=== PATIENT | male | born 1960 | race Caucasian/White ===

== ENCOUNTER 2017-12-10 16:08 | Emergency (ER) | payer MEDICARE ==
[~2017-12-10] VITALS: Ht 165.1 cm; Wt 88.0 kg
[~2017-12-10 16:08] MED LIST: ASPI-1159 PO; B50 PO; CARV25TA47 PO; CLOP75TA16 PO; DOCU250C14 PO; HYDR-4135 PO; ISOS30TA6 PO; METF500T6 PO; METO25TA6 PO; SIMV20TA6 PO; TAGALUD PO
[2017-12-10 17:26] VITALS: BP 121/70
[2017-12-10 19:57] LABS: BASOPHILS % 0.9 % (0.0-2.0); EOSINOPHILS % 1.5 % (0.0-5.0); HEMATOCRIT. 36.7 % (42.0-52.0); HEMOGLOBIN. 11.6 g/dL (14.0-18.0); LYMPHOCYTES % 29.1 % (20.0-50.0); MEAN CORPUSCULAR HEMOGLOBIN 22.5 pg (28.0-32.0); MEAN CORPUSCULAR VOLUME 71.1 fL (80.0-94.0); MEAN PLATELET VOLUME 10.7 fl (7.4-10.4); MONOCYTES % 8.4 % (2.0-8.0); NEUTROPHILS % 60.1 % (40.0-76.0); PLATELET 209 x1000/uL (130-400); RED BLOOD CELL COUNT 5.16 mill/uL (4.7-6.1)
[2017-12-10 20:01] LABS: CHLORIDE 105 mEq/L (98-107)
[2017-12-10] MEDS ORDERED: LIDOCAINE HCL 1% 20ML VIAL (Pyxis) INJ INFIL ONE (22:00)
[2017-12-10] MEDS ORDERED: LIDOCAINE HCL/PF 1% 10 MG/ML 5ML VIAL IJ ONE (22:15)
[2017-12-10] MEDS ORDERED: IOHEXOL-300 100 ML BOTTLE ONE (23:13)
[2017-12-11] MEDS ORDERED: CEFTRIAXONE SODIUM 500 MG/VIAL IM ONE (00:15)
[2017-12-11] MEDS ORDERED: LIDOCAINE HCL 1% 20ML VIAL (Pyxis) INJ INFIL ONE (00:15)
== END 2017-12-11 00:33 | disposition home or self-care (01) ==
LOC: ER 16:44
DX: L02.211 Cutaneous abscess of abdominal wall (principal)
CPT/HCPCS: 10060; 36415; 74177; 80053; 82962; 85025; 96372; 99285; J0696; J3490; Q9967; Z7610

== ENCOUNTER 2021-08-14 09:24 | Inpatient (IN) | payer MEDICAID ==
[~2021-08-14] VITALS: Ht 170.2 cm; Wt 86.3 kg
[~2021-08-14 09:24] MED LIST changes: -ASPI-1159 PO; +ASPI-1497 PO; +CLOP-31 PO; -CLOP75TA16 PO; -ISOS30TA6 PO; +ISOS30TA91 PO; +METF-414 PO; -METF500T6 PO; +SIMV-43 PO; -SIMV20TA6 PO
[2021-08-14 09:52] LABS: BASOPHILS % 0.9 % (0.0-2.0); EOSINOPHILS % 0.6 % (0.0-5.0); HEMATOCRIT. 48.6 % (42.0-52.0); HEMOGLOBIN. 16.1 g/dL (14.0-18.0); LYMPHOCYTES % 17.6 % (20.0-50.0); MEAN CORPUSCULAR HEMOGLOBIN 27.8 pg (28.0-32.0); MEAN CORPUSCULAR VOLUME 83.8 fL (80.0-94.0); MEAN PLATELET VOLUME 9.1 fl (7.4-10.4); MONOCYTES % 4.3 % (2.0-8.0); NEUTROPHILS % 76.6 % (40.0-76.0); PLATELET 202 x1000/uL (130-400); RED BLOOD CELL COUNT 5.79 mill/uL (4.7-6.1); RED CELL DISTRIBUTION WIDTH 15.4 % (11.6-14.6)
[2021-08-14 10:01] LABS: CHLORIDE 107 mEq/L (98-107)
[2021-08-14 10:16] LABS: PROTHROMBIN TIME 11.1 sec (9.6-11.0)
[2021-08-14] MEDS ORDERED: TOPUD PO (12:09)
[2021-08-14] MEDS ORDERED: ENALAPRIL 2.5MG/2ML VIAL 2ML IV ONE (13:45)
[2021-08-14] MEDS ORDERED: FUROSEMIDE 40MG/4ML VIAL IVP ONE (13:45)
[2021-08-14 14:53] LABS: CLARITY URINE CLEAR (CLEAR); COLOR URINE YELLOW (YELLOW); KETONES URINE 1+ (NEGATIVE); LEUKOCYTE ESTERASE URINE NEGATIVE (NEGATIVE); NITRITE URINE NEGATIVE (NEGATIVE); OCCULT BLOOD URINE NEGATIVE (NEGATIVE); PROTEIN URINE 4+ (NEGATIVE); SPECIFIC GRAVITY URINE 1.028 (1.005-1.030)
[2021-08-14] MEDS ORDERED: FUROSEMIDE 20MG/2ML VIAL IVP NR (15:45)
[2021-08-14] MEDS ORDERED: HYDRALAZINE 20MG/ML VIAL IV PRN (16:00)
[2021-08-14] MEDS ORDERED: POTASSIUM CHLORIDE 20MEQ TABLET SR PO NR (16:00)
[2021-08-14] MEDS ORDERED: FUROSEMIDE 40MG/4ML VIAL IVP SCH (18:00)
[2021-08-14 18:58] VITALS: BP 150/104
[2021-08-14] MEDS ORDERED: DEXTROSE 50% WATER 50ML SYRINGE IV PRN (21:30)
[2021-08-14] MEDS ORDERED: CLONIDINE 0.1MG TABLET PO PRN (21:30)
[2021-08-14 22:00] VITALS: BP 152/103
[2021-08-14] MEDS: LISINOPRIL 5MG TABLET PO SCH (22:09)
[2021-08-14] MEDS: ATORVASTATIN CALCIUM 20MG TABLET PO SCH (22:09)
[2021-08-14] MEDS ORDERED: GUAIFENESIN-DM 200MG-20MG/10ML UDC PO PRN (23:00)
[2021-08-15] MEDS ORDERED: METF-874 MT (05:07)
[2021-08-15] MEDS ORDERED: SIMV-43 MT (05:07)
[2021-08-15] MEDS ORDERED: DOXA2TAB2 MT (05:07)
[2021-08-15] MEDS ORDERED: LISI10TA26 MT (05:07)
[2021-08-15] MEDS ORDERED: FURO20TA4 MT (05:07)
[2021-08-15] MEDS ORDERED: ASPI-1497 MT (05:07)
[2021-08-15] MEDS ORDERED: ATROV INH (05:07)
[2021-08-15] MEDS ORDERED: ISOS30TA91 MT (05:07)
[2021-08-15] MEDS ORDERED: AMLO10TA80 MT (05:07)
[2021-08-15 06:53] LABS: CHLORIDE 108 mEq/L (98-107)
[2021-08-15] MEDS: BLOOD SUGAR DIAGNOSTIC STRIP TEST SCH ×4 (06:55→20:39)
[2021-08-15 06:56] LABS: BASOPHILS % 0.7 % (0.0-2.0); EOSINOPHILS % 1.6 % (0.0-5.0); HEMATOCRIT. 50.4 % (42.0-52.0); HEMOGLOBIN. 16.7 g/dL (14.0-18.0); MEAN CORPUSCULAR HEMOGLOBIN 27.6 pg (28.0-32.0); MEAN CORPUSCULAR VOLUME 83.3 fL (80.0-94.0); MEAN PLATELET VOLUME 9.3 fl (7.4-10.4); MONOCYTES % 8.9 % (2.0-8.0); NEUTROPHILS % 55.8 % (40.0-76.0); PLATELET 205 x1000/uL (130-400); RED BLOOD CELL COUNT 6.05 mill/uL (4.7-6.1); RED CELL DISTRIBUTION WIDTH 15.7 % (11.6-14.6)
[2021-08-15] MEDS: INSULIN LISPRO 100 UNITS/ML SUBCUT SCH ×4 (06:59→20:39)
[2021-08-15 08:00] VITALS: BP 154/101
[2021-08-15] MEDS: CLOPIDOGREL 75MG TABLET PO SCH (10:00)
[2021-08-15] MEDS: FUROSEMIDE 40MG/4ML VIAL IVP SCH ×2 (10:00→20:40)
[2021-08-15] MEDS: LISINOPRIL 5MG TABLET PO SCH (10:00)
[2021-08-15] MEDS: ASPIRIN 81MG EC TABLET PO SCH (10:00)
[2021-08-15] MEDS: ENOXAPARIN 40MG/0.4ML SYR SUBCUT SCH (10:00)
[2021-08-15] MEDS: CARVEDILOL 12.5MG TABLET PO SCH ×2 (10:26→17:14)
[2021-08-15 13:18] VITALS: BP 143/102
[2021-08-15 16:00] VITALS: BP 139/92
[2021-08-15 20:00] VITALS: BP 151/87
[2021-08-15] MEDS: ATORVASTATIN CALCIUM 20MG TABLET PO SCH (20:40)
[2021-08-16] VITALS: BP 146/92
[2021-08-16 04:00] VITALS: BP 146/95
[2021-08-16] MEDS: BLOOD SUGAR DIAGNOSTIC STRIP TEST SCH ×4 (06:14→21:00)
[2021-08-16] MEDS: INSULIN LISPRO 100 UNITS/ML SUBCUT SCH ×4 (06:26→21:48)
[2021-08-16 08:00] VITALS: BP 144/83
[2021-08-16] MEDS: FUROSEMIDE 40MG/4ML VIAL IVP SCH (09:26)
[2021-08-16] MEDS: LISINOPRIL 5MG TABLET PO SCH (09:26)
[2021-08-16] MEDS: CARVEDILOL 12.5MG TABLET PO SCH ×2 (09:26→17:23)
[2021-08-16] MEDS: ASPIRIN 81MG EC TABLET PO SCH (09:26)
[2021-08-16] MEDS: CLOPIDOGREL 75MG TABLET PO SCH (09:26)
[2021-08-16] MEDS: ENOXAPARIN 40MG/0.4ML SYR SUBCUT SCH (09:27)
[2021-08-16 11:32] LABS: CHLORIDE 103 mEq/L (98-107)
[2021-08-16 12:00] VITALS: BP 140/83
[2021-08-16] MEDS: POTASSIUM CHLORIDE 20MEQ TABLET SR PO SCH (18:20)
[2021-08-16 20:00] VITALS: BP 120/78
[2021-08-16] MEDS: ATORVASTATIN CALCIUM 20MG TABLET PO SCH (20:45)
[2021-08-16] MEDS: FUROSEMIDE 40MG/4ML VIAL IV SCH (20:45)
[2021-08-16] MEDS ORDERED: FUROSEMIDE 100MG/10ML VIAL IV SCH (21:00)
[2021-08-17] VITALS (9 sets, daily range): BP systolic 107–140; BP diastolic 62–89
[2021-08-17] MEDS: FUROSEMIDE 40MG/4ML VIAL IV SCH (05:13)
[2021-08-17] MEDS: BLOOD SUGAR DIAGNOSTIC STRIP TEST SCH ×4 (06:45→20:47)
[2021-08-17] MEDS: GLIPIZIDE 5MG TABLET PO SCH (07:10)
[2021-08-17] MEDS: INSULIN LISPRO 100 UNITS/ML SUBCUT SCH ×4 (07:14→20:47)
[2021-08-17] MEDS: POTASSIUM CHLORIDE 20MEQ TABLET SR PO SCH (08:10)
[2021-08-17] MEDS: CLOPIDOGREL 75MG TABLET PO SCH (08:10)
[2021-08-17] MEDS: CARVEDILOL 12.5MG TABLET PO SCH ×2 (08:10→17:28)
[2021-08-17] MEDS: ASPIRIN 81MG EC TABLET PO SCH (08:10)
[2021-08-17] MEDS: ENOXAPARIN 40MG/0.4ML SYR SUBCUT SCH (08:11)
[2021-08-17] MEDS: LISINOPRIL 5MG TABLET PO SCH (08:11)
[2021-08-17] MEDS ORDERED: LIDOCAINE HCL 1% 20ML VIAL (Pyxis) INJ ONE (10:15)
[2021-08-17] MEDS ORDERED: VERAPAMIL HCL 2.5 MG/1 ML 2ML VIAL IV ONE (10:16)
[2021-08-17] MEDS ORDERED: MIDAZOLAM HCL 2 MG/2 ML VIAL ONE (10:16)
[2021-08-17] MEDS ORDERED: IODIXANOL 320MG/ML 100 ML BOTTLE IV ONE ×2 (10:16→11:43)
[2021-08-17] MEDS ORDERED: DIPHENHYDRAMINE 50MG/ML VIAL ONE ×2 (10:17→11:22)
[2021-08-17] MEDS ORDERED: FENTANYL CITRATE/PF 50MCG/ML 2ML VIAL ONE (10:17)
[2021-08-17] MEDS ORDERED: IOHEXOL-300 100 ML BOTTLE ONE (11:28)
[2021-08-17] MEDS ORDERED: CLOPIDOGREL 75MG TABLET ONE (12:11)
[2021-08-17] MEDS ORDERED: ASPIRIN 325MG TABLET ONE (12:11)
[2021-08-17] MEDS ORDERED: ATROPINE SULFATE 1MG/10ML SYR IV PRN (12:45)
[2021-08-17] MEDS ORDERED: ACETAMINOPHEN 325MG TABLET PO PRN (12:45)
[2021-08-17] MEDS ORDERED: NICARDIPINE 100MCG/ML 10ML VIAL (CATH LAB) IV ONE (14:56)
[2021-08-17] MEDS ORDERED: NITROGLYCERIN 50MCG/ML 10ML VIAL (CATH LAB) IV ONE (14:56)
[2021-08-17] MEDS ORDERED: HEPARIN SODIUM 1,000 UNIT/1ML VIAL IV ONE (14:56)
[2021-08-17] MEDS: ATORVASTATIN CALCIUM 20MG TABLET PO SCH (20:46)
[2021-08-18] VITALS (8 sets, daily range): BP systolic 117–144; BP diastolic 75–98
[2021-08-18] MEDS: GLIPIZIDE 5MG TABLET PO SCH (06:48)
[2021-08-18] MEDS: BLOOD SUGAR DIAGNOSTIC STRIP TEST SCH ×2 (06:48→12:30)
[2021-08-18 07:22] LABS: BASOPHILS % 0.6 % (0.0-2.0); HEMATOCRIT. 49.6 % (42.0-52.0); HEMOGLOBIN. 16.9 g/dL (14.0-18.0); LYMPHOCYTES % 34.2 % (20.0-50.0); MEAN CORPUSCULAR HEMOGLOBIN 28.2 pg (28.0-32.0); MEAN CORPUSCULAR VOLUME 82.8 fL (80.0-94.0); MEAN PLATELET VOLUME 9.4 fl (7.4-10.4); MONOCYTES % 10.3 % (2.0-8.0); NEUTROPHILS % 51.9 % (40.0-76.0); PLATELET 177 x1000/uL (130-400); RED BLOOD CELL COUNT 5.99 mill/uL (4.7-6.1); RED CELL DISTRIBUTION WIDTH 15.3 % (11.6-14.6)
[2021-08-18 08:03] LABS: CHLORIDE 106 mEq/L (98-107)
[2021-08-18] MEDS: CLOPIDOGREL 75MG TABLET PO SCH (08:53)
[2021-08-18] MEDS: CARVEDILOL 12.5MG TABLET PO SCH (08:53)
[2021-08-18] MEDS: POTASSIUM CHLORIDE 20MEQ TABLET SR PO SCH (08:53)
[2021-08-18] MEDS: ENOXAPARIN 40MG/0.4ML SYR SUBCUT SCH (08:54)
[2021-08-18] MEDS: INSULIN LISPRO 100 UNITS/ML SUBCUT SCH ×2 (08:55→12:51)
[2021-08-18] MEDS ORDERED: ASPIRIN 81MG TABLET PO SCH (09:00)
[2021-08-18] MEDS: LISINOPRIL 5MG TABLET PO SCH (09:06)
[2021-08-18] MEDS ORDERED: CLOP75TA15 PO (13:19)
== END 2021-08-18 14:51 | disposition home or self-care (01) | DRG 175 ==
LOC: ER 09:24 → 8WST 14:01 → ENRESERV 16:00 → 5EST 08-17 13:07
PROVIDERS: ADMIT Internal Medicine; ATTEND Internal Medicine
PROC: 027034Z Dilation of Coronary Artery, One Artery with Drug-eluting Intraluminal Device, Percutaneous Approach (ICD-10-PCS; principal; 2021-08-17)
PROC: B54MZZA Ultrasonography of Right Upper Extremity Veins, Guidance (ICD-10-PCS; 2021-08-17)
PROC: 4A023N7 Measurement of Cardiac Sampling and Pressure, Left Heart, Percutaneous Approach (ICD-10-PCS; 2021-08-17)
PROC: B211YZZ Fluoroscopy of Multiple Coronary Arteries using Other Contrast (ICD-10-PCS; 2021-08-17)
PROC: B240ZZ3 Ultrasonography of Single Coronary Artery, Intravascular (ICD-10-PCS; 2021-08-17)
DX: T82.855A Stenosis of coronary artery stent, initial encounter (principal); I50.23 Acute on chronic systolic (congestive) heart failure; E44.1 Mild protein-calorie malnutrition; I11.0 Hypertensive heart disease with heart failure; I42.9 Cardiomyopathy, unspecified; E11.9 Type 2 diabetes mellitus without complications; E78.5 Hyperlipidemia, unspecified; F17.210 Nicotine dependence, cigarettes, uncomplicated; J44.9 Chronic obstructive pulmonary disease, unspecified; K43.9 Ventral hernia without obstruction or gangrene; N28.1 Cyst of kidney, acquired; I16.0 Hypertensive urgency; Z20.822 Contact with and (suspected) exposure to COVID-19; I25.110 Atherosclerotic heart disease of native coronary artery with unstable angina pectoris; R06.03 Acute respiratory distress; Y83.1 Surgical operation with implant of artificial internal device as the cause of abnormal reaction of the patient, or of later complication, without mention of misadventure at the time of the procedure; Z68.29 Body mass index [BMI] 29.0-29.9, adult; Z86.16 Personal history of COVID-19; Z95.1 Presence of aortocoronary bypass graft; Z90.49 Acquired absence of other specified parts of digestive tract; Z88.6 Allergy status to analgesic agent; Z88.1 Allergy status to other antibiotic agents; Z88.8 Allergy status to other drugs, medicaments and biological substances; Z79.899 Other long term (current) drug therapy; Z79.1 Long term (current) use of non-steroidal anti-inflammatories (NSAID); Z79.82 Long term (current) use of aspirin; Z79.4 Long term (current) use of insulin; Y92.89 Other specified places as the place of occurrence of the external cause
CPT/HCPCS: 36415; 71045; 74176; 78582; 80048; 80053; 81003; 82330; 82962; 83036; 83735; 83880; 84443; 84484; 85025; 85347; 85379; 87426; 92924; 92978; 93005; 93306; 93458; 93571; 93970; 99285; A9558; C1753; C1769; C1874; C1887; C1893; J1200; J1644; J1650; J1815; J1940; J2250; J3010; J3490; Q9967